=== PATIENT | male | born 1975 | race Caucasian/White ===

== ENCOUNTER → 2017-10-13 | Emergency (ER) | payer BC ==
[~2017-10-13] VITALS: Ht 177.8 cm; Wt 74.8 kg
[~2017-10-13] MED LIST: CELEXA20 MG PO
== END | disposition home or self-care (01) ==
LOC: ER 18:56
DX: S43.122A Dislocation of left acromioclavicular joint, 100%-200% displacement, initial encounter (principal); X50.3XXA Overexertion from repetitive movements, initial encounter; Y93.11 Activity, swimming; Y92.832 Beach as the place of occurrence of the external cause; Y99.8 Other external cause status